=== PATIENT | female | born 1950 | race Caucasian/White ===

== ENCOUNTER 2022-03-08 11:43 | Outpatient (CLI) | payer MEDICARE, SELFPAY ==
--- NOTE | 2022-03-08 12:57 | ECG_ITS ---
Measurements Intervals [place] Rate: 75 P: 46 UT: 159 QRS: 83 QRSD: 77 T: 1 QT: 381 QTc: 427 Interpretive Statements SINUS RHYTHM NONSPECIFIC T-WAVE ABNORMALITY- ANT/INF LEADS BASELINE ARTIFACT- I, II, III, AVR, AVL, AVF, V3 BORDERLINE ECG Electronically Signed On 03-08-2022 13:21:57 CDT by Chad Lundberg D.O.
[2022-03-08 13:30] LABS: Basophils Absolute Auto 0.1 K/mm3 (0.0-0.1); Basophils Percent Auto 0.7 % (0.2-1.2); Eosinophils Absolute Auto 0.2 K/mm3 (0-0.3); Eosinophils Percent Auto 2.2 % (0-4.4); Hematocrit 41.1 % (37.0-47.0); Hemoglobin 12.8 g/dL (12.0-15.0); Immature Granulocyte Absolute 0.04 K/mm3 (0.00-0.031); Immature Granulocyte Percent A 0.4 % (0-0.5); Lymphocytes Absolute Auto 4.31 K/mm3 (0.9-3.2); Lymphocytes Percent Auto 42.6 % (18.3-44.2); Mean Corpuscular HGB Conc 31.1 g/dl (32-36); Mean Corpuscular Hemoglobin 29.2 pg (26-34); Mean Corpuscular Volume 93.6 fl (80-100); Mean Platelet Volume 9.4 fl (7.4-10.4); Monocytes Absolute Auto 0.8 K/mm3 (0.1-0.6); Monocytes Percent Auto 8.3 % (2.6-8.5); Neutrophils Absolute Auto 4.6 K/mm3 (1.3-6.7); Neutrophils Percent Auto 45.8 % (45.5-73.1); Platelet Count Result 283 k/mm3 (150-375); Red Blood Count 4.39 M/mm3 (4.2-5.4); White Blood Count 10.1 K/mm3 (4.5-10.0)
[2022-03-08 13:39] LABS: Alanine Aminotransferase 17 U/L (6-35); Albumin Level 4.6 g/dL (3.5-5.1); Alkaline Phosphatase 84 U/L (38-126); Anion Gap 9 mmol/L (8-16); Aspartate Amino Transferase 34 U/L (14-36); Bilirubin,Total 0.3 mg/dL (0.2-1.3); Blood Urea Nitrogen 18 mg/dL (7-17); Carbon Dioxide 29 mmol/L (22-30); Chloride 101 mmol/L (98-107); Estimated Glomerular Filt Rate 49; Glucose 106 mg/dL (65-110); Potassium 4.1 mmol/L (3.4-5.0); Sodium 139 mmol/L (137-145)
[2022-03-08 13:40] LABS: Prothrombin Time 12.8 Seconds (11.1-14.7)
[2022-03-08 13:41] LABS: Partial Thromboplastin Time 25.7 SECONDS (22.3-36.8)
== END 2022-03-08 11:44 | disposition home or self-care (01) ==
LOC: ANHSURGERY 11:54
PROVIDERS: PCP Family Medicine; Visit Provider Urology
DX: N81.10 Cystocele, unspecified (principal); E78.00 Pure hypercholesterolemia, unspecified; Z01.818 Encounter for other preprocedural examination; R94.31 Abnormal electrocardiogram [ECG] [EKG]
CPT/HCPCS: 36415; 80053; 85025; 85610; 85730; 86850; 86900; 86901; 87086; 93005

== ENCOUNTER 2022-03-21 02:29 | Day surgery (SDC) | payer MEDICARE, SELFPAY ==
[2022-03-08 12:14] VITALS: BP 137/67; PULSE 77; RESP 16; TEMP 37.1; O2SAT 97; BMI 31.4
--- NOTE | 2022-03-08 12:27 | PC.NURSE ---
Report to the Outpatient Waiting Room, entrance under the green pavilion located off [facility], at time __8:30AM on date _03/21/22 . OR Time: __10:30AM . - You and your visitor will be asked a series of questions to screen for COVID 19 for your protection. - Only one visitor is allowed at this time. - The patient visitor is requested to leave or wait in car when not with patient. - A mask is required within the hospital. Patients may have clear liquids (water, carbonated beverages, clear teas, apple juice) until 3 hours prior to surgery with a maximum of 20 ounces. - No food from midnight until time of surgery - Infants may have breast milk until 4 hours before surgery, infant formula 6 hours prior to surgery. - Children will be allowed to drink immediately following surgery. If applicable, please bring a bottle or sippy cup to assist with drinking. Juice, water, soda, and popsicles are readily available. For infants on formula, please bring formula the day of surgery. Pacifiers are allowed. Take the following medications with a SIP of water the morning of surgery: __SERTRALINE Medications to discontinue per physician __HOLD ALL VITAMINS/SUPPLEMENTS 7 DAYS PRE-OP Date to take last dose 03/14/22 Please no make-up, nail gabonese, hairspray, perfume, deodorant, or body powder the day of surgery. No jewelry (including any body piercings) or valuables the day of surgery, leave them at home. Please take a shower or bath the night before, or the morning of, surgery with an antibacterial soap. Wear comfortable, loose fitting clothing. Children are encouraged to wear pajamas. - Jewelry must be removed prior to entering the operating room. Rings and piercings that are not removed may be cut off. - The hospital will not accept responsibility for valuables. - Please leave all valuables, including medications, at home the day of surgery. If you are going home after surgery, a licensed commercial front load driver must drive you home. - NO public transportation without another adult. - We recommend that an adult stay with you for 24 hours following discharge. - We also recommend that you do not drive, make important decision, drink alcoholic beverages, or take any drugs that were not prescribed by your health care provider for at least 24 hours after your discharge time. For Pediatric surgeries, we recommend two adults accompany the child home (only one inside the building at this time). Follow any additional instructions given to you from your surgeon. If you or anyone in your household have experienced Covid symptoms in the past week, please notify your surgeon or the nurse liaison at the phone number below for possible testing. Telephone instructions given to __PATIENT and asked if any additional questions and then verbalized understanding. Patient advised to call surgeon office or pre surgery nurse liaison [phone] if any additional questions.
--- NOTE | 2022-03-18 09:46 | PM.IMHP ---
H&P: HPI History of Present Illness Date/Time: 03/18/22 09:46 8-year-old female with a rectocele as well as intrinsic sphincter deficiency Chief Complaint: Rectocele, intrinsic sphincter deficiency Review of Systems Review of Systems: All systems reviewed & are unremarkable except as noted in HPI and below PMFSH Social History Social History Smoking status: Never smoker Alcohol intake: current Substance use: never Additional living arrangements comments: HUSB Spiritual care concerns: No Meds Home Medications and Allergies Home Medications Medication Instructions Recorded Confirmed Type Lacto.acidophilus-Bif.animalis 1 cap PO DAILY 03/08/22 03/15/22 History [Probiotic] acetaminophen 1,000 mg PO QAM PRN 03/08/22 03/15/22 History coffee xt-phosphatidyl serine 1 cap PO DAILY 03/08/22 03/15/22 History [Neuriva Original] diphenhydramine HCl 25 mg PO QAM 03/08/22 03/15/22 History fluticasone propionate 2 spray INTRANASAL BID PRN 03/08/22 03/15/22 History loratadine 10 mg PO QAM 03/08/22 03/15/22 History montelukast 10 mg PO DAILY 03/08/22 03/15/22 History rosuvastatin 10 mg PO QAM 03/08/22 03/15/22 History sertraline 50 mg PO QAM 03/08/22 03/15/22 History Allergies Allergy/AdvReac Type Severity Reaction Status Date / Time adhesive tape AdvReac REDNESS, Verified 03/15/22 12:47 IRRITATION Corticosteroids AdvReac WELT Verified 03/15/22 12:47 (Glucocorticoids) Exam Narrative: Alert and oriented x3 No acute distress Normal breathing Rectocele and +2 No cystocele Fixed urethra Assessment and Plan Assessment and plan (1) Rectocele: Code(s): N81.6 - Rectocele Status: Acute Assessment and Plan: Rectocele repair (2) Intrinsic sphincter deficiency (ISD): Code(s): N36.42 - Intrinsic sphincter deficiency (ISD) Status: Acute Assessment and Plan: Cystoscopy with bulking agent
[2022-03-21] VITALS (8 sets, daily range): BP systolic 118–157; BP diastolic 63–96; PULSE 72–98; RESP 14–16; TEMP 36.2–36.4; O2SAT 93–99
--- NOTE | 2022-03-21 07:15 | WPDHPUPDATE1 ---
History and Physical Update Update Date/Time: 03/21/22 07:15 History and Physical has been reviewed, including an updated exam of the patient. There are NO changes in the patient's condition. Risks, benefits, and alternatives have been discussed and questions answered. Patient agrees to proceed with procedure.
--- NOTE | 2022-03-21 09:05 | WPDANESEPPF ---
Anes - Initial Pre Proc Eval Procedure: Operation Date: 03/21/22 10:30 Proposed Procedures p Rectocele Repair with Bulkamid - Pasha Louis MD Date/Time: 03/21/22 09:05 Surgeon: Pasha Louis MD Pre Op Diagnosis: midline cystocele, rectocele Patient Data Age: 71 Gender: F Height: 1.61 m Weight: 81.2 kg Last Vital Signs Temp 98.7 F 03/08/22 12:14 Pulse 77 03/08/22 12:14 Resp 16 03/08/22 12:14 BP 137/67 03/08/22 12:14 Pulse Ox 97 03/08/22 12:14 Allergies Allergy/AdvReac Type Severity Reaction Status Date / Time adhesive tape AdvReac REDNESS, Verified 03/21/22 09:14 IRRITATION Corticosteroids AdvReac WELT Verified 03/21/22 09:14 (Glucocorticoids) Home Medications Medication Instructions Recorded Confirmed Type Lacto.acidophilus-Bif.animalis 1 cap PO DAILY 03/08/22 03/15/22 History [Probiotic] acetaminophen 1,000 mg PO QAM PRN 03/08/22 03/15/22 History coffee xt-phosphatidyl serine 1 cap PO DAILY 03/08/22 03/15/22 History [Neuriva Original] diphenhydramine HCl 25 mg PO QAM 03/08/22 03/15/22 History fluticasone propionate 2 spray INTRANASAL BID PRN 03/08/22 03/21/22 History loratadine 10 mg PO QAM 03/08/22 03/15/22 History montelukast 10 mg PO DAILY 03/08/22 03/15/22 History rosuvastatin 10 mg PO QAM 03/08/22 03/15/22 History sertraline 50 mg PO QAM 03/08/22 03/21/22 History Patient hx anesthesia problems: none Family hx anesthesia problems: none Results Review: All pre-operative results and documents have been reviewed as part of the pre-operative evaluation. [facility] Past Medical History Medical History (Updated 03/21/22 @ 09:05 by Ruiz Curtis MD) Anxiety Arthritis Depression Hypercholesteremia Social History Social History Smoking status: Never smoker Alcohol intake: current Substance use: never Living arrangements: with family Additional living arrangements comments: HUSB Spiritual care concerns: No Anes - Eval Final PreProcedure Day of Procedure 03/21/22 09:05 Patient weight: obese Heart: regular rate and rhythm Lungs: clear to auscultation Airway: Mallampati scale class II Neurological: alert and oriented Last oral intake: >/= 8 hours ASA classification: II Emergent: no Anesthetic plan: proceed Anesthesia type and monitoring: general LMA and standard monitoring Results Review: All pre-operative results and documents have been reviewed as part of the pre-operative evaluation. Informed Consent: The patient's anesthetic plan and its attendant risks and benefits were discussed with the patient/family/POA. Questions were solicited and answers provided to the satisfaction of the patient/family/POA.
[2022-03-21] MEDS: LACTATED RINGERS 1,000 ML 30 ML IV CONT ×2 (09:23→12:24)
[2022-03-21] MEDS: ceFAZolin 2 GM/D5W 50 ML 2 GM/50 ML BAG IVPB (10:56)
[2022-03-21] MEDS: LIDO 1%/EPINEPHRINE/PF 1:200,000 30 ML VIAL 20 ML XX (11:18)
--- NOTE | 2022-03-21 12:18 | W.PM.PROC2 ---
Procedure Note - Detailed Date of Procedure 03/21/22 Pre-op Diagnosis rectocele/enterocele intrinsic sphincter deficiency Post-op Diagnosis Same Procedure Performed rectocele repair/enterocele repair cystoscopy with suburethral injection of implant material Surgeon Pasha Louis MD Anesthesia General Indications this is a patient with a rectocele. She has no cystocele. She has excellent apical support. She has a fixed urethra. she is here today for surgical repair of her prolapse as well as her intrinsic sphincter deficiency. She understands risks of bleeding, infection, damage to surrounding organs, fistula formation, recurrence of prolapse, dyspareunia, persistent stress incontinence, recurrent stress incontinence, urinary retention. She agrees to proceed Findings large rectocele/ enterocele. Intrinsic sphincter deficiency with a fixed urethra Description of Procedure she has correctly identified. Informed consent obtained. She from the operating room. She was given general anesthesia. She was placed in dorsal lithotomy position. She was prepped draped in a sterile fashion. Time-out performed. She has no cystocele. She has excellent apical support. She has a fixed urethra. She has a rectocele/ enterocele to the introitus. I placed a [place] retractor. I placed Lombardi catheter. I infiltrated the subcutaneous tissues of the posterior vaginal wall with local. I made a midline vaginal incision. I dissected the mucosa off the underlying fascial structures laterally and back to the apex. I took great care not To enter the peritoneum. She has a large rectocele/enterocele. I did a plication repair with 0 Vicryl suture. I did this with several interrupted stitches. This reduced the rectocele/ enterocele. I trimmed minimal excess vaginal mucosa. I closed the mucosa with a running 2-0 Vicryl suture. There was reduction of the rectocele /enterocele without undue narrowing vagina. Brief cystoscopy revealed a normal appearing bladder. She had open urethra consistent with intrinsic sphincter deficiency. I injected 1 syringe of bulking material. I did this circumferentially around the urethra 2 cm distal to the bladder neck. There was excellent bulking effect. I left the bladder partially full. She was awakened transferred to PACU in stable condition Estimated Blood Loss 20 Drains No Packing No Pathology None sent Complications No immediate complications Condition Stable Disposition PACU
[2022-03-21] MEDS: oxyCODONE HCL (*CRX) 5 MG TAB IR PO (14:13)
== END 2022-03-21 14:15 | disposition home or self-care (01) ==
PROVIDERS: Visit Provider Urology
PROC: 0JQC0ZZ Repair Pelvic Region Subcutaneous Tissue and Fascia, Open Approach (ICD-10-PCS; CPT 45560; principal; 2022-03-21 10:30)
DX: N81.6 Rectocele (principal); N81.4 Uterovaginal prolapse, unspecified; N36.42 Intrinsic sphincter deficiency (ISD); E66.9 Obesity, unspecified; Z68.30 Body mass index [BMI] 30.0-30.9, adult; F41.8 Other specified anxiety disorders; M19.90 Unspecified osteoarthritis, unspecified site; E78.00 Pure hypercholesterolemia, unspecified
CPT/HCPCS: 51715; 57250; A9270; J0690; J2250; J2405; J2704; J3010; J7030; J7120; L8606